=== PATIENT | female | born 1990 | race Two or more races ===

== ENCOUNTER 2024-03-13 07:49 | Emergency (ER) | payer OTHER ==
[~2024-03-13] VITALS: Ht 160 cm; Wt 66.7 kg
[2024-03-13] MEDS ORDERED: PRENA1 TRUE CO1 EACH PO (07:59)
[2024-03-13 08:35] LABS: HEMATOCRIT 38.4 % (36.0-45.00); HEMOGLOBIN 13.1 g/dL (12.0-15.00); MEAN CELL VOLUME 86.5 fL (80.00-100.00); MEAN CORPUSCULAR HEMOGLOBIN 29.4 pg (27.00-32.0); PLATELET COUNT 235 K/uL (150-450); RED BLOOD COUNT 4.45 M/uL (4.00-6.00); RED CELL DISTRIBUTION WIDTH 12.8 % (11.5-14.5)
[2024-03-13 09:15] LABS: CALCIUM 9.3 mg/dL (8.5-10.1); CREATININE SERUM 0.7 mg/dL (0.55-1.02); GFR 95.79; POTASSIUM 3.98 mEq/L (3.5-5.1)
[2024-03-13 10:26] LABS: URINE APPEARANCE Clear; URINE BILIRRUBIN Negative (NEGATIVE); URINE BLOOD Large; URINE COLOR Yellow; URINE GLUCOSE Negative (NEGATIVE); URINE LEUKOCYTE Moderate; URINE NITRATE Negative; URINE PROTEIN Negative (NEGATIVE); URINE UROBILINOGEN 0.2 E.U./dl
[2024-03-13 10:29] LABS: URINE BACTERIA 361.6 uL (0.0-1933); URINE EPITHELIAL CELLS 42.4 uL (0.0-38.8); URINE RBC 24.1 uL (0.0-20.8); URINE WBC 26.2 uL (0.0-23.2)
== END 2024-03-13 10:49 | disposition home or self-care (01) ==
LOC: ER 07:50
PROVIDERS: General Practice
DX: O20.9 Hemorrhage in early pregnancy, unspecified (principal); O34.11 Maternal care for benign tumor of corpus uteri, first trimester; Z3A.01 Less than 8 weeks gestation of pregnancy

== ENCOUNTER 2025-04-15 22:50 | Emergency (ER) | payer OTHER ==
[~2025-04-15] VITALS: Ht 160 cm; Wt 68.0 kg
[~2025-04-15 22:50] MED LIST: PRENA1 TRUE CO1 EACH PO
[2025-04-16 01:44] LABS: BASO % 0.3 % (0.1-1.2); EOS # 0.03 (0.04-0.54); EOS % 0.3 % (0.7-7.0); LYMPH # 1.72 (1.18-3.74); LYMPH % 17.5 % (19.3-53.1); MEAN PLATELET VOLUME 9.50 fl (9.4-12.4); MONO # 0.55 (0.24-0.82); MONO % 5.6 % (4.7-12.5); NEUT # 7.44 (1.56-6.13); NEUT % 75.7 % (34.0-71.1); RED CELL DISTRIBUTION WIDTH 13.7 % (11.6-14.4)
== END 2025-04-16 | disposition home or self-care (01) ==
LOC: ER 22:50
DX: O26.892 Other specified pregnancy related conditions, second trimester (principal); Z3A.15 15 weeks gestation of pregnancy; S89.82XA Other specified injuries of left lower leg, initial encounter; S89.81XA Other specified injuries of right lower leg, initial encounter; W17.89XA Other fall from one level to another, initial encounter; Y93.89 Activity, other specified; Y92.89 Other specified places as the place of occurrence of the external cause